=== PATIENT | male | born 1990 ===

== ENCOUNTER 2024-10-23 12:15 | Emergency (ER) | payer SELFPAY ==
--- NOTE | 2024-10-23 12:24 | NUR ---
PT WAS EVALUATED BY DR CUEVAS AND DEVAN CONNELLY AND ADVISED PT THE NEED TO R/O STROKE. PT POLITELY REFUSED SEVERAL TIMES AND WE EVEN BROUGHT HIS TO ASK IF SHE WAS IN AGREEMENT AND SHE PLEADED FOR HIM TO STAY. PT CONTINUED TO REFUSE EVALUATION AND WALKED OUT THE TRIAGE DOOR. PT LEFT BEFORE TRIAGE COULD BE COMPLETED. PT ELOPED.
--- NOTE | 2024-10-23 12:35 | ERN ---
General Chief Complaint: Numbness Stated Complaint: NUMBNESS Time Seen by MD: 12:24 Source: patient History of Present Illness Initial Comments THIS IS A 34-YEAR-OLD MALE COMING IN TO BE EVALUATED FOR LEFT FACIAL NUMBNESS. PATIENT STATES THAT THIS BEGAN EARLIER IN THE MORNING WHEN HE WOKE UP AND STATES THAT SLOWLY GOT A LITTLE BIT BETTER. ROS Dictation CONSTITUTIONAL: NO CHILLS, NO FEVER, NO WEAKNESS, NO DIAPHORESIS, NO MALAISE. HEAD/FACE: NO SIGNS OF TRAUMA. FACIAL NUMBNESS EENT: NO EYE PAIN, NO BLURRED VISION, NO TEARING, NO DOUBLE VISION, NO EAR PAIN, NO EAR DISCHARGE, NO NOSE PAIN, NO NASAL CONGESTION, NO THROAT PAIN, NO THROAT SWELLING, NO MOUTH PAIN. RESPIRATORY: NO COUGH, NO ORTHOPNEA, NO SOB, NO STRIDOR, NO WHEEZING. CARDIOVASCULAR: NO CHEST PAIN, NO EDEMA, NO PALPITATIONS, NO SYNCOPE. GASTROINTESTINAL/ABDOMINAL: NO ABDOMINAL PAIN, NO CONSTIPATION, NO DIARRHEA, NO NAUSEA, NO VOMITING. GENITOURINARY: NO ABNORMAL DISCHARGE, NO DYSURIA, NO FREQUENT URINATION, NO HEMATURIA. NO COMPLAINTS OF PAIN IN THE GENITALS. MUSCULOSKELETAL: NO BACK PAIN, NO GOUT, NO JOINT PAIN, NO JOINT SWELLING, NO MUSCLE PAIN, NO MUSCLE STIFFNESS, NO NECK PAIN. INTEGUMENTARY: NO CHANGE IN COLOR, NO CHANGE IN HAIR/NAILS, NO DRYNESS, NO LESION, NO LUMPS, NO RASH. NEUROLOGICAL/PSYCH: NO ANXIETY, NOT DEPRESSED, NO EMOTIONAL PROBLEM, NO HEADACHE, NO NUMBNESS, NO PRE-EXISTING DEFICIT, NO HISTORY OF SEIZURES, NO TREMORS, NO WEAKNESS. HEMATOLOGIC/LYMPHATIC: NOT ANEMIC, NO HISTORY OF BLOOD CLOTS, NO APPARENT BLEEDING, NO BRUISING, GLANDS NOT SWOLLEN. ALL SYSTEMS NEGATIVE, EXCEPT NOTED. Physical Exam Physical Exam Dictation VITAL SIGNS: REVIEWED. GENERAL APPEARANCE: ALERT, ORIENTED X3, NO ACUTE DISTRESS, OBESE. HEAD AND FACE: NON-TRAUMATIC. LEFT FACIAL NUMBNESS, MILD WEAKNESS EYES: PERRL, PINK CONJUNCTIVAS, EYELID NO TRAUMA, ANTERIOR CHAMBER CLEAR. EARS: PINNAS INTACT AND NO SIGNS OF TRAUMA OR ERYTHEMA. EAR CANALS CLEAR AND NO DISCHARGE. TMS NO ERYTHEMA. NOSE: NO DISCHARGE, NO BLEEDING. OROPHARYNX: MOUTH NORMAL, TEETH NO CARIES, TONGUE PINK. PHARYNX CLEAR, NO ER YTHEMA. TONSILS NO EXUDATES, NO ABSCESSES NOTED. MUCOUS MEMBRANE MOIST. NECK: SUPPLE, NON-TENDER, NO THYROMEGALY, NO MASSES, NO JVD, NO BRUITS. BREAST: DEFERRED. CHEST: NO TENDERNESS, NO CREPITUS, NO PARADOXICAL MOVEMENT, NO RETRACTIONS. LUNGS: CLEAR, WELL-VENTILATED, SYMMETRIC, NO RALES, NO WHEEZING, NO RHONCHI, NO STRIDOR, GOOD BREATH SOUNDS BILATERALLY. HEART: REGULAR RATE, REGULAR RHYTHM, NO MURMUR, NO GALLOPS. VASCULAR: NO PERIPHERAL EDEMA. ABDOMEN: SOFT, POSITIVE BOWEL SOUNDS, NONDISTENDED, NO GUARDING, NONTENDER, NO REBOUND, NO MASSES NO HEPATOMEGALY, NO SPLENOMEGALY, NO GANNON'S SIGN, NO HERNIAS. RECTAL: DEFERRED. GENITAL: DEFERRED. NEUROLOGICAL: NORMAL SPEECH, GROSS MOTOR FUNCTION INTACT, GROSS SENSORY FUNCTION INTACT. MUSCULOSKELETAL: NECK NONTENDER, FULL RANGE OF MOTION, BACK NONTENDER, FULL RANGE OF MOTION. EXTREMITIES: NONTENDER, FULL RANGE OF MOTION. SKIN: COLOR PINK, DRY, NO TURGOR, NO RASH, NO LACERATIONS, NO ABRASIONS, NO CONTUSIONS. LYMPHATICS: DEFERRED. MDM MDM: DIFFERENTIAL DIAGNOSIS: TIA, CVA, PATIENT NUMBNESS, RATIONALE: TESTS CONSIDERED AND ORDERED SECONDARY TO SHARED DECISION MAKING INCLUDE: LABS, ECG AND RADIOLOGY PREVIOUS OUTSIDE RECORDS REVIEWED: OLD ER VISITS. RISK OF COMPLICATION AND/OR MORBIDITY OR MORTALITY OF PATIENT MANAGEMENT: NONE MEDICATIONS-PER MEDICATION RECONCILIATION NEED FOR HOSPITALIZATION: PATIENT DOES MEET CRITERIA FOR HOSPITALIZATION. NEED FOR EMERGENCY MAJOR/MINOR SURGERY: NO THERE ARE NO SOCIAL CONCERNS WITH THIS PATIENT. PRESCRIPTION DRUG MANAGEMENT PRESCRIPTIONS WILL INCLUDE SYMPTOMATIC CARE PATIENT'S PRIOR EXTERNAL MEDICAL RECORDS FROM OTHER ER VISITS WERE REVIEWED BY ME INDICATED. PRIOR TESTING AND RESULTS FROM PREVIOUS VISITS WERE REVIEWED. PRIOR TESTS WERE TAKEN INTO ACCOUNT WITH MEDICAL DECISION MAKING AND RESOURCE UTILIZATION, INDEPENDENT HISTORIAN/HISTORIANS WERE USED TO OBTAIN COMPLETE MEDICAL HISTORY. I INDEPENDENTLY INTERPRETED THE TEST THAT WERE PERFORMED, RESULTS WERE REVIEWED BY ME AND CONSIDERED FINDINGS ON RADIOLOGY IF ORDERED. MEDICAL MANAGEMENT AND EXAMINATION INTERPRETATION DISCUSSIONS WERE HAD BY ME WITH OTHER QUALIFIED HEALTHCARE PROFESSIONALS INDICATED FOR THE PATIENT'S CARE. WAS ADVISED BY NURSING STAFF THAT PATIENT ELOPED. DX & DISP Disposition: AMA Departure Impression: Primary Impression: Left facial numbness Condition: Against Medical Advice Additional Instructions: PATIENT ELOPED FROM TRIAGE WHILE I WAS SPEAKING TO HIM AND DISCUSSING THE PLAN OF CARE. DUE TO THE FACIAL NUMBNESS HE PRESENTED WITH A STROKE RULE OUT NEEDED TO TAKE PLACE. I DID ADVISE HIM THAT WE NEEDED TO GET A CT OF THE HEAD PATIENT STATES THAT HE REFUSES CARE AND RESPECTIVELY WALKED OUT. I DID SPEAK TO HIS AND WAS NOT ABLE TO CONVINCE PATIENT TO STAY EITHER. I ADVISED PATIENT AND IF THEY CHANGE THEIR MIND TO PLEASE SEEK IMMEDIATE HELP WITH THE NEAREST ER Referrals: SELF,REFERRAL (PCP) Time of Disposition: 12:34 NAVID CUEVAS MD October 23, 2024 12:35
== END 2024-10-23 12:38 | disposition left against medical advice (07) ==
LOC: EDH 12:15
DX: R20.0 Anesthesia of skin (principal)
CPT/HCPCS: 99281